=== PATIENT | male | born 1995 | race Caucasian/White ===

== ENCOUNTER 2017-11-21 18:11 | Emergency (ER) | payer OTHER ==
--- NOTE | 2017-11-21 18:26 | ED ---
Headache - HPI Summary HPI Summary: 22 male presents ED with complaints of migraine that began around 4 AM today. Patient has history of migraines. States this one has become a little more intense and longer in duration than typical. Denies any recent injury or trauma. States the pain feels very similar to previous migraines. Except more intense. States it is right sided, has photosensitivity, associated nausea and vomiting, pain worsens with exertion. Describes pain to be sharp and throbbing. States he usually gets migraines 3-4 times a year for over the past month has had about 3-4 episodes. Used to have maintenance medication back in high school and followed up with a neurologist. However since has stopped maintenance medication and has not seen a neurologist in the past few years. Denies any obvious increased amounts of stress. Denies any known triggers. No past medical history. Took an Excedrin on 4 AM when migraine began however did not have much relief. Has not taken anything since. Denies any fatigue, lightheadedness, dizziness, fever chills, cough, chest pain, trouble breathing, abdominal pain, nasal congestion, neck stiffness or back stiffness/pain. Admits to having blurred vision at times with his migraines. However is not having any vision difficulties at this time. Admits to not getting appropriate on a sleep every night. No past medical history other than migraines. States pain at rest is about 3 out of 4. Increases with movement or walking to a 5/6. Headache has improved since it began. States he vomited 9 times however has not been the past couple hours. Admits to an aura and this is typical for him - History Of Current Complaint Chief Complaint: EDHeadache Stated Complaint: HEADACHE Time Seen by Provider: 11/21/17 18:21 Hx Obtained From: Patient Onset/Duration: Sudden Onset, Started hours ago, Still Present Initially Headache Was: Initial Pain Scale(0-10)= - 6/7 Currently Pain Is: Current Pain Scale(0-10)= - 2/very, Mild Timing: Constant Character: Sharp, Throbbing, Typical Headache, Migraine Location of Headache: Parietal - Right Radiates to: none Aggravating Factor: Exertion, Position Change, Bright Lights Allevating Factors: Rest Associated Signs And Symptoms: Nausea, Vomiting, Visual Changes - Resolved - Allergies/Home Medications Allergies/Adverse Reactions: Allergies Allergy/AdvReac Type Severity Reaction Status Date / Time No Known Allergies Allergy Verified 11/21/17 18:13 PMH/Surg Hx/FS Hx/Imm Hx Endocrine/Hematology History: Denies: Hx Anticoagulant Therapy, Hx Diabetes Cardiovascular History: Denies: Hx Hypertension Respiratory History: Denies: Hx Asthma Neurological History: Reports: Hx Migraine - Surgical History Surgery Procedure, Year, and Place: None - Immunization History Hx Pertussis Vaccination: Yes Infectious Disease History: No Infectious Disease History: Denies: Traveled Outside the [place] in Last 30 Days - Family History Known Family History: Positive: None - Social History Lives: Dormitory/Roommates Alcohol Use: Occasionally Substance Use Type: Reports: None Smoking Status (MU): Never Smoked Tobacco Review of Systems Constitutional: Negative Positive: Blurred Vision - resolved ENT: Negative Cardiovascular: Negative Respiratory: Negative Positive: Vomiting, Nausea Positive: Headache All Other Systems Reviewed And Are Negative: Yes Physical Exam Triage Information Reviewed: Yes Vital Signs On Initial Exam: Initial Vitals Temp Pulse Resp BP Pulse Ox 98.5 F 79 16 113/74 95 11/21/17 18:13 11/21/17 18:13 11/21/17 18:13 11/21/17 18:13 11/21/17 18:13 Vital Signs Reviewed: Yes Appearance: Positive: Well-Appearing, No Pain Distress, Well-Nourished Skin: Positive: Warm, Skin Color Reflects Adequate Perfusion, Dry. Negative: Cold, Numb, Cyanosis @, Pale, Erythema @ Head/Face: Positive: Normal Head/Face Inspection. Negative: Temporal Artery Tenderness, TMJ Tenderness, Scalp Eyes: Positive: Normal, EOMI, RUBÉN, Conjunctiva Clear, Other: - Normal visual acuity ENT: Positive: Normal ENT inspection, Hearing grossly normal, Pharynx normal, TMs normal, Uvula midline. Negative: Tonsillar swelling, Tonsillar exudate Neck: Positive: Supple, Nontender, No Lymphadenopathy Respiratory/Lung Sounds: Positive: Clear to Auscultation, Breath Sounds Present. Negative: Rales, Rhonchi, Wheezes Cardiovascular: Positive: Normal, RRR, Pulses are Symmetrical in both Upper and Lower Extremities. Negative: Murmur, Rub Abdomen Description: Positive: Nontender, Soft Bowel Sounds: Positive: Present Musculoskeletal: Positive: Normal, Strength/ROM Intact Neurological: Positive: Normal - Memory and concentration intact. Normal neuro exam., Sensory/Motor Intact, Alert, Oriented to Person Place, Time, CN Intact II -III, Reflexes Intact, NV Bundle Intact Distally, Normal Gait, Finger to Nose - Normal, Facial Symmetry, Speech Normal - Steele Coma Scale Best Eye Response: 4 - Spontaneous Best Motor Response: 6 - Obeys Commands Best Verbal Response: 5 - Oriented Coma Scale Total: 15 Diagnostics - Vital Signs Vital Signs Temp Pulse Resp BP Pulse Ox 11/21/17 18:13 98.5 F 79 16 113/74 95 - Laboratory Lab Statement: Any lab studies that have been ordered have been reviewed, and results considered in the medical decision making process. Re-Evaluation - Re-Evaluation First Eval Re-Evaluation Time: 19:50 Change: Improved - Had relief after medication. Updated with plan. Agrees and understands. Right to be Discharged Headache Course/Dx - Course Course Of Treatment: does not appear to need any labs or imaging at this time due to symptoms and physical exam. Normal vitals. Appears to be a migraine. Appears migraines are becoming more intense and longer in duration. Unknown trigger. Had relief after Toradol, Reglan, normal saline. Blood patient follow -up with neurologist outpatient to discuss possible preventative medication and further workup. Continue Excedrin and/or Advil at home for pain. Also prescribed Zofran for nausea and vomiting as needed. Patient is aware worsening signs and symptoms to watch out for, no other concerns at this time. Patient agrees and understands plan. All questions were answered. - Diagnoses Differential Diagnosis/HQI/PQRI: Migraine, Sinus Headache, Tension Headache Provider Diagnoses: Migraine headache with aura Discharge - Sign-Out/Discharge Documenting (check all that apply): Discharge - Discharge Plan Condition: Improved Disposition: HOME Prescriptions: Ondansetron ODT TAB* [Zofran 4 MG Odt TAB*] 4 mg PO Q6H PRN #10 tab.odt PRN Reason: Nausea Patient Education Materials: Migraine Headache (ED) Referrals: [facility] - Al SNIDER [Primary Care Provider] - Babita Giraldo MD [Medical Doctor] - Additional Instructions: Continue taking Excedrin and/or Advil for pain. Take prescribed medication to help with any nausea/vomiting as needed. Sent to [place]. Be sure to drink an appropriate amount of fluids. Stay well-hydrated. Get appropriate amount of sleep. Recommend trying [id number] melatonin is having trouble sleeping. This may be an exacerbating factor for her migraines. Follow-up with neurology, call to make an appointment. Any new or worsening symptoms as we discussed please seek medical attention and return to ED. Follow-up with PCP. - Billing Disposition and Condition Condition: IMPROVED Disposition: HOME
[2017-11-21] MEDS ORDERED: NS 0.9% 1000 ML* 1,000 ML IV ONE (19:02)
[2017-11-21] MEDS ORDERED: Metoclopramide IV* 5 MG/ML 2 ML VIAL IV ONE (19:02)
[2017-11-21] MEDS ORDERED: Ketorolac INJ* 30 MG/ML 1 ML VIAL IV PUSH ONE (19:02)
[2017-11-21 20:05] VITALS: BP 106/64
== END 2017-11-21 20:06 | disposition home or self-care (01) ==
LOC: ED 18:11
DX: G43.909 Migraine, unspecified, not intractable, without status migrainosus (principal); R11.2 Nausea with vomiting, unspecified; H53.8 Other visual disturbances; R51 Headache
CPT/HCPCS: 96374; 96375; 99282; J1885; J2765